=== PATIENT | male | born 1980 | race Caucasian/White ===

== ENCOUNTER 2021-02-14 23:11 | Inpatient (IN) | payer BC, MEDICAID ==
[~2021-02-14] VITALS: Ht 180.3 cm; Wt 113.0 kg
[2021-02-14] MEDS ORDERED: normal saline 1000ml 1,000 ML IV ONE (23:20)
[2021-02-15 00:08] LABS: ALANINE AMINOTRANSFERASE 129 U/L (12-78); ALBUMIN 3.8 G/DL (3.4-5.0); ALKALINE PHOSPHATASE 80 IU/L (46-116); ANION GAP 24 (8-16); ASPARTATE AMINO TRANSFERASE 113 U/L (10-37); BILIRUBIN,TOTAL 0.6 MG/DL (0.1-1.0); BLOOD UREA NITROGEN 12 MG/DL (7-18); BUN/CREATININE RATIO 12.5 (5.4-32.0); CALCIUM 9.8 MG/DL (8.5-10.1); CHLORIDE 94 MMOL/L (99-107); CREATININE 0.96 MG/DL (0.60-1.10); ETHANOL 0.205 GM/DL (0.0-0.010); GLUCOSE 126 MG/DL (70-104); POTASSIUM 3.1 MMOL/L (3.5-5.1); SODIUM 134 MMOL/L (135-145); TOTAL PROTEIN 7.7 G/DL (6.4-8.2); eGFR 86 ML/MIN
[2021-02-15 00:09] LABS: ACETAMINOPHEN < 2.0 UG/ML (10-30)
[2021-02-15] MEDS ORDERED: potassium Cl 20 mEq SR tablet PO STA (00:15)
[2021-02-15 00:21] LABS: URINE AMPHETAMINE SCREEN NEGATIVE (Neg); URINE BARBITUATE SCREEN NEGATIVE (Neg); URINE BENZODIAZEPINES SCREEN NEGATIVE (Neg); URINE CANNABINOID SCREEN NEGATIVE (Neg); URINE COCAINE SCREEN NEGATIVE (Neg); URINE METHADONE SCREEN NEGATIVE (Neg); URINE OPIATE SCREEN NEGATIVE (Neg); URINE PHENCYCLIDINE SCREEN NEGATIVE (Neg)
[2021-02-15 00:23] LABS: BASOPHILS % (AUTO) 0.3 % (0-1); EOSINOPHILS % (AUTO) 0.1 % (0-6); LYMPHOCYTES # (AUTO) 2.2 X10'3 (1.1-4.8); LYMPHOCYTES % (AUTO) 20.6 % (21-51); MEAN CORPUSCULAR HEMOGLOBIN 33.4 PG (27.0-31.0); MEAN CORPUSCULAR HGB CONC 34.9 g/dL (33.0-36.5); MEAN CORPUSCULAR VOLUME 95.5 FL (78-98); MEAN PLATELET VOLUME 11.1 FL (7.4-10.4); NEUTROPHILS # (AUTO) 7.6 X10'3 (1.8-7.7); PLATELET COUNT 156 X10'3 (140-440); RED BLOOD COUNT 5.55 X10'6 (4.70-6.10); RED CELL DISTRIBUTION WIDTH 12.8 % (11.5-14.5); WHITE BLOOD COUNT 10.9 X10'3 (4.5-11.0)
[2021-02-15 00:26] LABS: HEMOGLOBIN 18.5 g/dl (14.0-17.9)
--- NOTE | 2021-02-15 00:27 | NUR ---
critical value hgb 18.5
[2021-02-15 00:39] LABS: LIPASE 531 U/L (73-393)
[2021-02-15] MEDS: dextrose 5%-normal saline 1,000 ML IV SCH ×2 (00:48→01:15)
--- NOTE | 2021-02-15 00:53 | NUR ---
assisting RN with pt care, pt is drinking ice water, jostin well, no n/v
[2021-02-15] MEDS ORDERED: LOSA25TA96 PO (00:57)
[2021-02-15] MEDS ORDERED: NAPR-56 PO (00:58)
[2021-02-15] MEDS ORDERED: naproxen 500mg tablet PO PRN (01:50)
[2021-02-15] MEDS ORDERED: normal saline 1000ml 1,000 ML IV ONE (02:20)
[2021-02-15] MEDS ORDERED: LORazepam 2 mg/ml vial IV ONE ×2 (03:00→04:50)
[2021-02-15 03:59] LABS: ALBUMIN 3.1 G/DL (3.4-5.0); ANION GAP 12 (8-16); BLOOD UREA NITROGEN 10 MG/DL (7-18); BUN/CREATININE RATIO 10.2 (5.4-32.0); CALCIUM 7.8 MG/DL (8.5-10.1); CHLORIDE 102 MMOL/L (99-107); CREATININE 0.98 MG/DL (0.60-1.10); GLUCOSE 79 MG/DL (70-104); POTASSIUM 3.1 MMOL/L (3.5-5.1); SODIUM 139 MMOL/L (135-145); TOTAL CARBON DIOXIDE 25.5 MMOL/L (24-32); eGFR 84 ML/MIN
[2021-02-15] MEDS ORDERED: thiamine 100mg tablet PO ONE (04:55)
[2021-02-15] MEDS ORDERED: potassium Cl 40MEQ/1/2NS 520ml 520 ML IV PRN ×2 (05:10)
[2021-02-15] MEDS ORDERED: magnesium 2GM in 50ml NS 50 ML IV PRN (05:10)
[2021-02-15] MEDS ORDERED: mag hydrox/Alum hydrox/simeth 30ml oral suspension PO ONE (05:10)
[2021-02-15] MEDS ORDERED: thiamine 100mg/ml 2ml inj. IV ONE (05:10)
[2021-02-15] MEDS ORDERED: magnesium Cl slow-release 64mg tablet PO PRN ×2 (05:10→07:45)
[2021-02-15] MEDS ORDERED: magnesium 4gm in 100ml NS 100 ML IV PRN (05:10)
[2021-02-15] MEDS ORDERED: dextrose 50%-water 50ml dispensing syringe IV PRN (05:10)
[2021-02-15] MEDS ORDERED: LORazepam 2 mg/ml vial IV PRN (05:10)
[2021-02-15] MEDS ORDERED: ondansetron/PF 4mg/2ml inj IV PRN (05:10)
[2021-02-15] MEDS: normal saline 1000ml 1,000 ML IV SCH ×3 (06:06→19:06)
--- NOTE | 2021-02-15 06:43 | NUR ---
Received report from Fidelia ELISE RN. Awaiting arrival of pt to unit.
[2021-02-15 07:00] VITALS: BP 151/82
--- NOTE | 2021-02-15 07:14 | NUR ---
Pt arrived to unit. Tele applied. Pt oriented to room. VSS. Pt resting comfortably in room.
[2021-02-15] MEDS ORDERED: potassium Cl 20 mEq SR tablet PO PRN (07:45)
[2021-02-15] MEDS: pantoprazole 40 MG vial IV SCH (08:21)
[2021-02-15] MEDS: heparin, porcine 5000 units/ml vial SQ SCH ×2 (08:22→19:07)
[2021-02-15] MEDS: potassium Cl 20 mEq SR tablet PO PRN ×3 (08:22→17:21)
[2021-02-15] MEDS: LORazepam 2 mg/ml vial IV PRN ×5 (08:22→21:53)
[2021-02-15] MEDS: K and/or MAG REPLACEMENT MC SCH ×2 (08:29→19:07)
[2021-02-15 11:00] VITALS: BP 138/88
[2021-02-15 16:00] VITALS: BP 147/88
--- NOTE | 2021-02-15 18:24 | NUR ---
Problems reprioritized. Patient report given, questions answered & plan of care reviewed with Evon MARQUEZ.
[2021-02-15 22:00] VITALS: BP_SYST 154; BP_SYST 163; BP_DIAS 90; BP_DIAS 93
[2021-02-16] VITALS (7 sets, daily range): BP systolic 135–178; BP diastolic 86–105
[2021-02-16] MEDS ORDERED: chlordiazePOXIDE 25mg capsule PO PRN (00:40)
[2021-02-16] MEDS ORDERED: mag hydrox/Alum hydrox/simeth 30ml oral suspension PO ONE (00:50)
[2021-02-16] MEDS: normal saline 1000ml 1,000 ML IV SCH ×3 (00:57→14:30)
[2021-02-16] MEDS: LORazepam 2 mg/ml vial IV PRN (02:09)
--- NOTE | 2021-02-16 06:21 | NUR ---
Patient in room PCU 3012. I have received report from Evon MARQUEZ and had the opportunity to ask questions and assume patient care.
[2021-02-16 07:38] LABS: BASOPHILS % (AUTO) 0.5 % (0-1); EOSINOPHILS # (AUTO) 0.1 X10'3 (0-0.9); EOSINOPHILS % (AUTO) 1.2 % (0-6); HEMATOCRIT 45.5 % (42.0-52.0); HEMOGLOBIN 15.6 g/dl (14.0-17.9); LYMPHOCYTES # (AUTO) 1.9 X10'3 (1.1-4.8); LYMPHOCYTES % (AUTO) 29.9 % (21-51); MEAN CORPUSCULAR HEMOGLOBIN 33.3 PG (27.0-31.0); MEAN CORPUSCULAR HGB CONC 34.4 g/dL (33.0-36.5); MEAN PLATELET VOLUME 11.1 FL (7.4-10.4); MONOCYTES # (AUTO) 0.6 X10'3 (0-0.9); MONOCYTES % (AUTO) 8.5 % (2-12); NEUTROPHILS # (AUTO) 3.9 X10'3 (1.8-7.7); NEUTROPHILS % (AUTO) 59.9 % (42-75); PLATELET COUNT 100 X10'3 (140-440); RED BLOOD COUNT 4.69 X10'6 (4.70-6.10); RED CELL DISTRIBUTION WIDTH 12.8 % (11.5-14.5); WHITE BLOOD COUNT 6.5 X10'3 (4.5-11.0)
[2021-02-16 07:40] LABS: ALANINE AMINOTRANSFERASE 139 U/L (12-78); ALBUMIN/GLOBULIN RATIO 0.9 (1.1-1.5); ALKALINE PHOSPHATASE 62 IU/L (46-116); ANION GAP 11 (8-16); ASPARTATE AMINO TRANSFERASE 89 U/L (10-37); BILIRUBIN,TOTAL 0.7 MG/DL (0.1-1.0); BLOOD UREA NITROGEN 8 MG/DL (7-18); BUN/CREATININE RATIO 9.9 (5.4-32.0); CALCIUM 8.9 MG/DL (8.5-10.1); CHLORIDE 104 MMOL/L (99-107); CREATININE 0.81 MG/DL (0.60-1.10); GLUCOSE 101 MG/DL (70-104); MAGNESIUM 2.2 MG/DL (1.5-2.4); POTASSIUM 3.6 MMOL/L (3.5-5.1); SODIUM 139 MMOL/L (135-145); TOTAL CARBON DIOXIDE 23.7 MMOL/L (24-32); TOTAL PROTEIN 6.3 G/DL (6.4-8.2); eGFR > 90 ML/MIN
[2021-02-16] MEDS: pantoprazole 40 MG vial IV SCH (08:00)
[2021-02-16] MEDS: K and/or MAG REPLACEMENT MC SCH (08:00)
[2021-02-16] MEDS: heparin, porcine 5000 units/ml vial SQ SCH (08:00)
[2021-02-16 08:47] LABS: LARGE PLATELETS FEW; PLATELET ESTIMATE DECREASED
--- NOTE | 2021-02-16 09:28 | NUR ---
PAGER ID: [phone] MESSAGE: Pt Florencia [id number] is wanting to go home, can you order a psych eval so we can clear him? No s/s of ETOH withdrawal, refused Ativan, denies suicidal thoughts, resting no distress. Thank you, Jovanna Vani
[2021-02-16] MEDS ORDERED: atenolol 50mg tablet PO SCH (11:55)
--- NOTE | 2021-02-16 18:34 | NUR ---
Problems reprioritized. Patient report given, questions answered & plan of care reviewed with Evon MARQUEZ.
--- NOTE | 2021-02-16 19:03 | NUR ---
Pt dressed and ready for discharge after report was received from. Once discharge order was placed, discharge teaching was given. Pt verbalized readiness to go home and voices no suicidal thoughts. IV removed and pt escorted. Pt wishes to get an uber and declined a cab. Pt in NAD. VSS.
== END 2021-02-16 18:55 | disposition home or self-care (01) | DRG 775 ==
LOC: ER 23:12 → ED HOLD 02-15 05:06 → PCU 3S 02-15 06:55
PROVIDERS: ADMIT Internal Medicine; ATTEND Internal Medicine
DX: F10.231 Alcohol dependence with withdrawal delirium (principal); R45.851 Suicidal ideations; F10.220 Alcohol dependence with intoxication, uncomplicated; F32.9 Major depressive disorder, single episode, unspecified; F43.10 Post-traumatic stress disorder, unspecified; I10 Essential (primary) hypertension; F41.9 Anxiety disorder, unspecified; Z88.0 Allergy status to penicillin; Z79.899 Other long term (current) drug therapy
CPT/HCPCS: 36415; 80048; 80053; 80305; 80320; 80329; 82948; 83690; 83735; 85008; 85025; 87081; 93005; 99285; C9113; G0378; J1644; J2060; J7030; J7042

== ENCOUNTER 2024-02-24 22:35 | Emergency (ER) | payer MEDICAID ==
[~2024-02-24] VITALS: Ht 180.3 cm; Wt 109.1 kg
[~2024-02-24 22:35] MED LIST: LOSA-415 PO; THIA100T70 PO
[2024-02-24 22:58] VITALS: BP 153/94; PULSE 88; RESP 17; O2SAT 96
[2024-02-24] MEDS ORDERED: ketorolac trometh inj. 60 MG/2 ML VIAL IM ONE (23:10)
[2024-02-24] MEDS ORDERED: CLIN300C54 PO (23:11)
[2024-02-24] MEDS: ketorolac trometh. 30mg/ml inj. IM ONE (23:37)
[2024-02-24] MEDS: CefTRIAXone 1000mg IM Kit (w/lidocaine diluent) IM ONE (23:37)
[2024-02-24] MEDS: TETanus/Pertussis (Acell)/Diphther VAC/PF (Tdap-Adult) 0.5ml syringe IMVAC ONE (23:40)
[2024-02-24 23:49] VITALS: TEMP 98.7
== END 2024-02-24 23:51 | disposition home or self-care (01) ==
LOC: ER 22:35
DX: L03.113 Cellulitis of right upper limb (principal); F10.90 Alcohol use, unspecified, uncomplicated
CPT/HCPCS: 90471; 90715; 96372; 99284; J0696; J1885

== ENCOUNTER 2024-03-01 08:46 | Outpatient (CLI) | payer MEDICAID ==
[~2024-03-01 08:46] MED LIST changes: +CLIN300C54 PO
== END 2024-03-01 23:59 | disposition home or self-care (01) ==
LOC: RAD 08:46
PROVIDERS: ATTEND Family Medicine
DX: M25.531 Pain in right wrist (principal); M79.641 Pain in right hand
CPT/HCPCS: 73110; 73130